=== PATIENT | male | born 1995 | race Asian ===

== ENCOUNTER 2021-02-09 20:57 | Emergency (ER) | payer OTHER, SELFPAY ==
[2021-02-09] MEDS ORDERED: Ketorolac Tromethamine 15 MG/ML VIAL ONE (21:22)
[2021-02-09] MEDS ORDERED: Lidocaine 1% w/Epinephrine 1:100K 20 ML VIAL ONE (21:49)
== END 2021-02-09 22:16 ==
LOC: CSHERS 20:57
DX: S41.152A Open bite of left upper arm, initial encounter (principal); S01.551A Open bite of lip, initial encounter; S01.511A Laceration without foreign body of lip, initial encounter; W54.0XXA Bitten by dog, initial encounter
CPT/HCPCS: 96372; J1885